=== PATIENT | male | born 1995 | race Caucasian/White ===

== ENCOUNTER 2023-08-14 20:19 | Emergency (ER) | payer MEDICAID, OTHER ==
[~2023-08-14] VITALS: Ht 177.8 cm; Wt 81.7 kg
[2023-08-14] MEDS: levETIRAcetam 500 MG TAB PO ONE (21:11)
[2023-08-14 21:19] VITALS: BP 152/95; PULSE 86; RESP 16; TEMP 97.9; O2SAT 98
[2023-08-14] MEDS ORDERED: LEVE500T40 PO (21:41)
== END 2023-08-14 22:12 | disposition home or self-care (01) ==
LOC: EDBD 20:19 → ER 20:19
DX: S00.83XA Contusion of other part of head, initial encounter (principal); G40.909 Epilepsy, unspecified, not intractable, without status epilepticus; X58.XXXA Exposure to other specified factors, initial encounter; Y93.89 Activity, other specified; Y92.89 Other specified places as the place of occurrence of the external cause; Y99.8 Other external cause status
CPT/HCPCS: 70450; 72125; 93005

== ENCOUNTER 2023-08-31 20:18 | Emergency (ER) | payer MEDICAID ==
[~2023-08-31] VITALS: Ht 365.8 cm; Wt 77.3 kg
[~2023-08-31 20:18] MED LIST: LEVE500T40 PO
[2023-08-31 20:25] VITALS: PULSE 88; RESP 21; TEMP 98.1; O2SAT 97
[2023-08-31 21:05] LABS: Basophils # (auto) 0 10 ^3/uL (0-0.2); Basophils % (auto) 0.7 % (0.0-2.0); Eosinophils # (auto) 0 10 ^3/uL (0-0.8); Eosinophils % (auto) 0.5 % (0.0-7.0); Hematocrit 42.8 % (41.0-53.0); Hemoglobin 14.6 g/dL (13.5-17.5); Lymphocytes # (auto) 0.7 10 ^3/uL (0.4-5.4); Lymphocytes % (auto) 14.1 % (10.0-50.0); Mean Corpuscular Hemoglobin 33.6 pg (28.0-32.0); Mean Corpuscular Hgb Conc. 34.1 g/dL (32.0-36.0); Mean Corpuscular Volume 98.3 fL (80.0-100.0); Monocytes # (auto) 0.3 10 ^3/uL (0-1.3); Monocytes % (auto) 6.7 % (0.0-12.0); Neutrophils # (auto) 3.9 10 ^3/uL (1.6-8.6); Nucleated Red Blood Cells % 0.1 %; Red Blood Cells 4.35 10^6/uL (4.5-5.90); Red Cell Distribution Width 13.4 % (11.8-14.3)
[2023-08-31 21:09] LABS: Alanine Aminotransferase 85 U/L (7-40); Albumin 4.6 g/dL (3.2-4.8); Alkaline Phosphatase 86 U/L (46-116); Anion Gap 12 (5-15); Aspartate Aminotransferase 95 U/L (13-40); BUN/Creatinine Ratio 6.6 (10.0-20.0); Blood Urea Nitrogen 6 mg/dL (9-23); Calcium 9.6 mg/dL (8.5-10.1); Carbon Dioxide 22 mmol/L (20-30); Chloride 100 mmol/L (98-107); Glucose 165 mg/dL (74-106); Potassium 3.8 mmol/L (3.5-5.1); Sodium 134 mmol/L (136-145)
[2023-08-31 21:10] LABS: Bilirubin, Total 1.7 mg/dL (0.2-1.0); Total Protein 6.9 g/dL (5.7-8.2)
[2023-08-31] MEDS: levETIRAcetam 1000 mg/100ml 100 ML IV ONE (21:17)
[2023-08-31] MEDS: SODIUM CHLORIDE 0.9% 1,000 ML IV ONE (21:34)
[2023-08-31 21:49] LABS: Urine Bacteria None Seen /hpf (None Seen)
[2023-08-31 22:55] LABS: Urine Blood TRACE /uL (Negative); Urine Clarity Clear (Clear); Urine Color Light-Yellow (Yellow); Urine Hyaline Cast MOD /lpf (0 - 2); Urine Mucus FEW (None Seen); Urine Protein, UAD 1+ (Negative); Urine Specific Gravity 1.009 (1.001-1.035); Urine Urobilinogen Normal (Negative); Urine WBC 1 /hpf (0 - 3); Urine pH 6.5 (5.0-9.0)
[2023-08-31 23:18] VITALS: BP 139/96; PULSE 91; RESP 12; O2SAT 97
== END 2023-08-31 23:36 | disposition home or self-care (01) ==
LOC: ER 20:18 → EDBD 20:18 → ER 23:28
DX: R56.9 Unspecified convulsions (principal)
CPT/HCPCS: 36415; 80053; 81001; 85025; 93005; 96361; 96365; 99284; J1953; J7030

== ENCOUNTER 2023-11-02 12:12 | Inpatient (IN) | payer MEDICAID ==
[~2023-11-02] VITALS: Ht 177.8 cm; Wt 81.4 kg
[2023-11-02 13:10] LABS: Urine Bacteria None Seen /hpf (None Seen)
[2023-11-02] MEDS: SODIUM CHLORIDE 0.9% 1,000 ML IV ONE (13:22)
[2023-11-02] MEDS: LORazepam 2MG/ML-1ML VIAL IV ONE (13:22)
[2023-11-02 13:29] LABS: Urine Hyaline Cast MANY /lpf (0 - 2); Urine Mucus FEW (None Seen); Urine WBC 9 /hpf (0 - 3)
[2023-11-02 13:39] LABS: Basophils # (auto) 0 10 ^3/uL (0-0.2); Eosinophils # (auto) 0 10 ^3/uL (0-0.8); Monocytes # (auto) 0.4 10 ^3/uL (0-1.3); Monocytes % (auto) 8.3 % (0.0-12.0)
[2023-11-02 13:41] LABS: Basophils % (auto) 0.7 % (0.0-2.0); Eosinophils % (auto) 0.4 % (0.0-7.0); Hematocrit 45.2 % (41.0-53.0); Lymphocytes # (auto) 1.6 10 ^3/uL (0.4-5.4); Lymphocytes % (auto) 30.9 % (10.0-50.0); Mean Corpuscular Hemoglobin 34.6 pg (28.0-32.0); Mean Corpuscular Hgb Conc. 35.5 g/dL (32.0-36.0); Mean Corpuscular Volume 97.5 fL (80.0-100.0); Neutrophils % (auto) 59.7 % (37.0-80.0); Platelet Count (auto) 266 10^3/uL (140-450); Red Blood Cells 4.63 10^6/uL (4.5-5.90); Red Cell Distribution Width 12.7 % (11.8-14.3); White Blood Cell 5.1 10^3/uL (4.4-10.8)
[2023-11-02 13:42] LABS: Urine Clarity CLEAR (Clear); Urine Color Yellow (Yellow); Urine Protein, UAD 2+ (Negative)
[2023-11-02 13:43] LABS: Amphetamine Screen, Urine Neg (NEGATIVE); Urine Blood Normal /uL (Negative); Urine Urobilinogen 2 mg/dL (Negative)
[2023-11-02 13:44] LABS: Barbiturate Scree,Urine Neg (NEGATIVE); Benzodiazephine Screen, Urine Neg (NEGATIVE); Cannabinoid Screen, Urine Neg (NEGATIVE); Cocaine Screen, Urine Neg (NEGATIVE); Opiate Scree,Urine Neg (NEGATIVE); Phencyclidine Screen, Urine Neg (NEGATIVE)
[2023-11-02 14:00] LABS: Alanine Aminotransferase 147 U/L (7-40); Albumin 4.9 g/dL (3.2-4.8); Alkaline Phosphatase 118 U/L (46-116); Anion Gap 14 (5-15); Aspartate Aminotransferase 190 U/L (13-40); BUN/Creatinine Ratio 5.7 (10.0-20.0); Blood Alcohol 261.1 mg/dL (<10); Blood Urea Nitrogen 5 mg/dL (9-23); Calcium 9.9 mg/dL (8.7-10.4); Carbon Dioxide 24 mmol/L (20-30); Chloride 101 mmol/L (98-107); Glucose 143 mg/dL (74-106); Magnesium 1.8 mg/dL (1.6-2.6); Potassium 3.6 mmol/L (3.5-5.1); Sodium 139 mmol/L (136-145)
[2023-11-02 14:01] LABS: Bilirubin, Total 0.6 mg/dL (0.2-1.0); Total Protein 7.6 g/dL (5.7-8.2)
[2023-11-02 14:03] LABS: Lactic Acid w/Reflex 3.6 mmol/L (0.4-2.0)
[2023-11-02] MEDS ORDERED: IBUPROFEN 600 MG TAB PO PRN (15:00)
[2023-11-02] MEDS ORDERED: DOCUSATE SOD 100 MG CAP PO PRN (15:00)
[2023-11-02] MEDS ORDERED: ONDANSETRON HCL 4 MG/2 ML VIAL IV PRN (15:00)
[2023-11-02] MEDS ORDERED: LORazepam 2MG/ML-1ML VIAL IV PRN (15:00)
[2023-11-02] MEDS ORDERED: HYDROcodone-ACET 5/325MG TAB PO PRN (15:00)
[2023-11-02] MEDS: levETIRAcetam 500 mg/100ml 100 ML IV ONE (15:14)
[2023-11-02] MEDS ORDERED: NITROGLYCERIN 0.4 MG SL TAB SL PRN (15:30)
[2023-11-02] MEDS ORDERED: MORPHINE SULFATE INJ 2 MG/ml SYRG IV PRN (15:30)
[2023-11-02] MEDS: SODIUM CHLORIDE 0.9% 1,000 ML IV SCH (16:10)
[2023-11-02 16:45] VITALS: PULSE 104; RESP 18; O2SAT 98
[2023-11-02 19:28] VITALS: PULSE 76; RESP 16; O2SAT 98
[2023-11-02 23:23] VITALS: BP_SYST 127; BP_DIAS 80; BP_DIAS 82; PULSE 59; PULSE 60; RESP 18; RESP 20; TEMP 98.3; O2SAT 96; O2SAT 97
[2023-11-02] MEDS ORDERED: LEVE100020 PO (23:24)
[2023-11-02] MEDS: levETIRAcetam 500 mg/100ml 100 ML IV SCH (23:33)
[2023-11-03 04:51] VITALS: BP 134/77; PULSE 51; RESP 20; TEMP 97.9; O2SAT 97
[2023-11-03 06:47] LABS: Alanine Aminotransferase 126 U/L (7-40); Alkaline Phosphatase 109 U/L (46-116); Anion Gap 9 (5-15); BUN/Creatinine Ratio 7.6 (10.0-20.0); Blood Urea Nitrogen 5 mg/dL (9-23); Carbon Dioxide 25 mmol/L (20-30); Chloride 103 mmol/L (98-107); Glucose 87 mg/dL (74-106); Potassium 3.4 mmol/L (3.5-5.1); Sodium 137 mmol/L (136-145)
[2023-11-03 06:48] LABS: Albumin 4.1 g/dL (3.2-4.8); Aspartate Aminotransferase 190 U/L (13-40); Total Protein 6.2 g/dL (5.7-8.2)
[2023-11-03 07:09] LABS: Basophils # (auto) 0 10 ^3/uL (0-0.2); Eosinophils # (auto) 0.1 10 ^3/uL (0-0.8); Hematocrit 39.7 % (41.0-53.0); Hemoglobin 14.2 g/dL (13.5-17.5); Lymphocytes # (auto) 1.3 10 ^3/uL (0.4-5.4); Mean Corpuscular Hemoglobin 35.3 pg (28.0-32.0); Monocytes # (auto) 0.3 10 ^3/uL (0-1.3); Neutrophils # (auto) 2.9 10 ^3/uL (1.6-8.6); Red Blood Cells 4.03 10^6/uL (4.5-5.90)
[2023-11-03 07:14] LABS: Basophils % (auto) 0.8 % (0.0-2.0); Eosinophils % (auto) 1.7 % (0.0-7.0); Lymphocytes % (auto) 28.6 % (10.0-50.0); Mean Corpuscular Hgb Conc. 35.9 g/dL (32.0-36.0); Mean Corpuscular Volume 98.4 fL (80.0-100.0); Monocytes % (auto) 7.1 % (0.0-12.0); Neutrophils % (auto) 61.8 % (37.0-80.0); Nucleated Red Blood Cells % 0.1 %; Platelet Count (auto) 212 10^3/uL (140-450); White Blood Cell 4.6 10^3/uL (4.4-10.8)
[2023-11-03 08:45] VITALS: BP 125/84; PULSE 62; RESP 20; TEMP 98.3; O2SAT 100
[2023-11-03] MEDS: MULTIPLE VITAMIN TAB PO SCH (10:10)
[2023-11-03] MEDS: THIAMINE 100mg/ml INJ (200mg/2ml VIAL) IV SCH (10:13)
[2023-11-03] MEDS: FOLIC ACID 1 MG in D5W 5% 50 ML INJ SCH (11:20)
[2023-11-03 13:10] VITALS: BP 137/74; PULSE 69; RESP 17; TEMP 98.4; O2SAT 98
[2023-11-03 21:00] VITALS: BP 129/78; PULSE 62; RESP 18; TEMP 98.5; O2SAT 99
[2023-11-04 05:00] VITALS: BP 128/81; PULSE 52; RESP 18; TEMP 98.4; O2SAT 100
[2023-11-04 08:00] VITALS: PULSE 53; PULSE 90; RESP 18; O2SAT 97
[2023-11-04 09:00] VITALS: BP 149/94; PULSE 81; RESP 17; TEMP 98.5; O2SAT 100
[2023-11-04 13:00] VITALS: BP 141/85; PULSE 98; RESP 17; TEMP 98; O2SAT 100
== END 2023-11-04 14:10 | disposition home or self-care (01) | DRG 816 ==
LOC: ER 12:12 → TELE-WESTW 15:19 → TELE 15:19 → TELE-WESTW 22:38
PROVIDERS: ADMIT Nurse Practitioner Family; ATTEND Internal Medicine
DX: T51.0X1A Toxic effect of ethanol, accidental (unintentional), initial encounter (principal); G92.8 Other toxic encephalopathy; E87.21 Acute metabolic acidosis; F10.129 Alcohol abuse with intoxication, unspecified; F10.139 Alcohol abuse with withdrawal, unspecified; R25.1 Tremor, unspecified; R73.9 Hyperglycemia, unspecified; G40.909 Epilepsy, unspecified, not intractable, without status epilepticus; Z79.899 Other long term (current) drug therapy; Y90.8 Blood alcohol level of 240 mg/100 ml or more; Y92.89 Other specified places as the place of occurrence of the external cause
CPT/HCPCS: 36415; 71045; 80053; 80307; 80320; 81001; 83605; 83735; 84484; 85025; 99291; G0378; J7060